=== PATIENT | female | born 1945 | race Two or more races ===

== ENCOUNTER 2023-01-24 07:45 | Inpatient (IN) | payer OTHER ==
[~2023-01-24] VITALS: Ht 165.1 cm; Wt 68.0 kg
[2023-01-24] MEDS ORDERED: NORVASC2.5 M1 PO (09:58)
[2023-01-24] MEDS ORDERED: VASOTEC20 M1 PO (09:58)
[2023-01-24] MEDS ORDERED: HYDROCHLOROTHIA25 MG PO (09:59)
[2023-01-24] MEDS ORDERED: FLONASE16 GM (09:59)
[2023-01-24] MEDS ORDERED: CHILDREN'S ASPI81 MG PO (09:59)
[2023-01-24] MEDS ORDERED: D3-501250 MCG PO (10:00)
[2023-01-31] MEDS ORDERED: PERCOCET 5-3251 EACH PO (07:37)
[2023-01-31] MEDS ORDERED: ELIQUIS2.5 MG PO (07:37)
[2023-01-31] MEDS ORDERED: DUI500 PO (07:37)
== END 2023-02-01 21:31 | disposition short-term general hospital, planned readmission (82) | DRG 470 ==
LOC: SURG 01-30 06:06 → O/R 01-30 06:06 → EDBD 01-30 07:45 → SURG 01-30 07:45
PROVIDERS: ADMIT Orthopaedic Surgery; ATTEND Orthopaedic Surgery
PROC: 0SRC0J9 Replacement of Right Knee Joint with Synthetic Substitute, Cemented, Open Approach (ICD-10-PCS; principal; 2023-01-30 15:15)
DX: M17.11 Unilateral primary osteoarthritis, right knee (principal); M22.11 Recurrent subluxation of patella, right knee